=== PATIENT | female | born 1960 | race Caucasian/White ===

== ENCOUNTER 2016-12-16 12:39 | Emergency (ER) | payer MEDICARE ==
[~2016-12-16] VITALS: Ht 162.6 cm; Wt 65.8 kg
--- NOTE | 2016-12-16 14:04 | PHYS DOC ---
Past Medical History Past Medical History: COPD, Other Additional Past Medical Histor: valve problems Past Surgical History: Hysterectomy Alcohol Use: None Drug Use: None Adult General Chief Complaint Chief Complaint: COUGH HPI HPI Patient is a 56 year old female who presents with 1 week of rhinorrhea, dry cough, fatigue, chills, and right sided chest pain with cough. Has been taking [id number] medications like NyQuil. Has also been using albuterol inhaler. She denies palpitations, diaphoresis, orthopnea, dyspnea on exertion, nausea or vomiting, measured fever, abdominal pain, diarrhea, hemoptysis, leg pain or swelling Review of Systems Review of Systems Constitutional: Denies fever or chills [] Eyes: Denies change in visual acuity, redness, or eye pain [] HENT: Denies nasal congestion or sore throat [] Respiratory: Denies cough or shortness of breath [] Cardiovascular: No additional information not addressed in HPI [] GI: Denies abdominal pain, nausea, vomiting, bloody stools or diarrhea [] : Denies dysuria or hematuria [] Musculoskeletal: Denies back pain or joint pain [] Integument: Denies rash or skin lesions [] Neurologic: Denies headache, focal weakness or sensory changes [] Endocrine: Denies polyuria or polydipsia [] Allergies Allergies Allergies Coded Allergies Type Severity Reaction Last Updated Verified No Known Drug Allergies 12/16/16 No Physical Exam Physical Exam Constitutional: Well developed, well nourished, no acute distress, non-toxic appearance. [] HENT: Normocephalic, atraumatic, bilateral external ears normal, oropharynx moist, no oral exudates, nose normal. [] Eyes: PERRLA, EOMI, conjunctiva normal, no discharge. [] Neck: Normal range of motion, supple, no stridor. [] Cardiovascular:Heart rate regular rhythm [] Lungs & Thorax: Bilateral breath sounds clear to auscultation [] Abdomen: Bowel sounds normal, soft, no tenderness. [] Skin: Warm, dry, no erythema, no rash. [] Back: No tenderness, no CVA tenderness. [] Extremities: No tenderness, ROM intact, no edema, no palpable cord. [] Neurologic: Alert and oriented X 3, normal motor function, normal sensory function, no focal deficits noted. [] Psychologic: Affect normal, judgement normal, mood normal. [] Current Patient Data Vital Signs Vital Signs Date Time Temp Pulse Resp B/P Pulse Ox O2 Delivery O2 Flow Rate FiO2 12/16/16 14:14 86 19 124/63 97 Room Air 12/16/16 12:50 99.7 99.7 Radiology/Procedures Radiology/Procedures Chest xray as interpreted by me with no acute cardiopulmonary disease process Course & Med Decision Making Course & Med Decision Making Pertinent Labs and Imaging studies reviewed. (See chart for details) Appears well on exam. Discussed symptomatic management. Return precautions given. She understands and agrees with plan. Dragon Disclaimer Dragon Disclaimer This electronic medical record was generated, in whole or in part, using a voice recognition dictation system. Departure Departure Impression: Primary Impression: Upper respiratory infection, viral Disposition: 01 HOME, SELF-CARE Condition: STABLE Referrals: UNKNOWN PCP NAME (PCP) Patient Instructions: Upper Respiratory Infection, Adult, [id number] Additional Instructions: Follow-up with your primary care doctor. Return for any concerns. Ana FERRERA MD Dec 16, 2016 14:04
--- NOTE | 2016-12-16 14:08 | RAD ---
Examination: 2 views the chest History: History of chest pain, cough Comparison: None available Findings: The cardiomediastinal silhouette grossly appears unremarkable. Mild prominent appearing bibasal interstitial lung markings. Impression: Mild prominent appearing bibasal interstitial lung markings probably bronchitis.
[2016-12-16 14:14] VITALS: BP 124/63
== END 2016-12-16 14:15 | disposition home or self-care (01) ==
LOC: ER 12:39
DX: J06.9 Acute upper respiratory infection, unspecified (principal); R07.89 Other chest pain; R53.83 Other fatigue; J44.9 Chronic obstructive pulmonary disease, unspecified; Z90.710 Acquired absence of both cervix and uterus
CPT/HCPCS: 71020; 99284

== ENCOUNTER 2017-01-18 16:35 | Emergency (ER) | payer MEDICARE ==
[~2017-01-18] VITALS: Ht 162.6 cm; Wt 63.5 kg
[2017-01-18 17:19] VITALS: BP 136/61
[2017-01-18] MEDS ORDERED: CLONAZEPAM 0.5 MG TABLET PO STA (17:32)
--- NOTE | 2017-01-18 17:55 | PHYS DOC ---
Past Medical History Past Medical History: COPD, Other Additional Past Medical Histor: valve problems Past Surgical History: Hysterectomy Alcohol Use: None Drug Use: None Adult General Chief Complaint Chief Complaint: MEDICATION REFILL HPI HPI Patient is a 56 year old female with history of COPD who presents today requesting medication refill for Suboxone and Klonopin. Patient states she takes Klonopin for anxiety and Suboxone for narcotic dependence. She states she is from [place] and has an appointment with her own doctor on 14 February. Patient states she's been out of these medications for more than 5 days. Review of Systems Review of Systems Constitutional: Denies fever or chills [] Eyes: Denies change in visual acuity, redness, or eye pain [] HENT: Denies nasal congestion or sore throat [] Respiratory: Denies cough or shortness of breath [] Cardiovascular: No additional information not addressed in HPI [] GI: Denies abdominal pain, nausea, vomiting, bloody stools or diarrhea [] : Denies dysuria or hematuria [] Musculoskeletal: Denies back pain or joint pain [] Integument: Denies rash or skin lesions [] Neurologic: Denies headache, focal weakness or sensory changes [] Endocrine: Denies polyuria or polydipsia [] Pysch: medication refill for anxiety medicines Current Medications Current Medications Current Medications Medications (Trade) Dose Ordered Sig/Jose Antonio Start Time Stop Time Status Last Admin Dose Admin Clonazepam (Klonopin) 0.5 mg 1X STAT 01/18/17 17:32 01/18/17 17:43 DC Allergies Allergies Allergies Coded Allergies Type Severity Reaction Last Updated Verified No Known Drug Allergies 12/16/16 No Physical Exam Physical Exam Constitutional: Well developed, well nourished, no acute distress, non-toxic appearance. [] HENT: Normocephalic, atraumatic, bilateral external ears normal, oropharynx moist, no oral exudates, nose normal. [] Eyes: PERRLA, EOMI, conjunctiva normal, no discharge. [] Neck: Normal range of motion, no tenderness, supple, no stridor. [] Cardiovascular:Heart rate regular rhythm, no murmur [] Lungs & Thorax: Bilateral breath sounds clear to auscultation [] Abdomen: Bowel sounds normal, soft, no tenderness, no masses, no pulsatile masses. [] Skin: Warm, dry, no erythema, no rash. [] Back: No tenderness, no CVA tenderness. [] Extremities: No tenderness, no cyanosis, no clubbing, ROM intact, no edema. [] Neurologic: Alert and oriented X 3, normal motor function, normal sensory function, no focal deficits noted. [] Psychologic: Affect normal, judgement normal, mood normal. [] Current Patient Data Vital Signs Vital Signs Date Time Temp Pulse Resp B/P Pulse Ox O2 Delivery O2 Flow Rate FiO2 01/18/17 17:19 98.9 98 16 97 Room Air 98.9 EKG EKG [] Radiology/Procedures Radiology/Procedures [] Course & Med Decision Making Course & Med Decision Making Pertinent Labs and Imaging studies reviewed. (See chart for details) Patient is in the ED requesting medication refill for Suboxone and Clonopin. She states she is from [place] and has an appointment with her own doctor on 14 February. Current vitals in the ED blood pressure 136/61, heart rate 98, O2 sats 97% on room air, respirations 16. Patient is in no distress. I offered her Klonopin 0.5 mg in the ED and discharged her with instructions to follow-up with a pain clinic. Dragon Disclaimer Dragon Disclaimer This electronic medical record was generated, in whole or in part, using a voice recognition dictation system. Departure Departure Impression: Primary Impression: Medication refill Disposition: 01 HOME, SELF-CARE Condition: STABLE Referrals: UNKNOWN PCP NAME (PCP) MANDEEP KIDD MD Please follow-up with the pain clinic as soon as possible. Patient Instructions: Anxiety and Panic Attacks Additional Instructions: We recommend you follow-up with the pain clinic as soon as possible for medication refill for Klonopin and Suboxone. We don't refill this medicines in the ED. ANISHA MATUTE [employer] Jan 18, 2017 17:55
== END 2017-01-18 18:05 | disposition home or self-care (01) ==
LOC: ER 16:35
DX: Z76.0 Encounter for issue of repeat prescription (principal); F41.9 Anxiety disorder, unspecified; F11.20 Opioid dependence, uncomplicated; J44.9 Chronic obstructive pulmonary disease, unspecified
CPT/HCPCS: 99282